=== PATIENT | female | born 1970 | race Caucasian/White ===

== ENCOUNTER 2024-07-18 09:34 | Outpatient (AMB) | payer OTHER, SELFPAY ==
--- OUTSIDE RECORDS SUMMARY | 2024-07-18 09:36 | XMS_ITS | Data Portability ---
Author Organization [facility], , [facility] Address [address] [place] [address] Assessment No assessment recorded. Plan of Treatment Reminders Order Date Submit Date Provider Last Modified By Organization Details Last Modified Time Details Appointments None record ed. Lab None record ed. Referral None record ed. Procedures None record ed. Surgeries None record ed. Imaging None record ed. Medication Orders None record ed. Patient TargetsNo targets recorded. Patient InstructionsNo instructions recorded. Reason for Referral None Reported. Results Created Date Observation Date Name Description Value Unit Range Abnormal Flag Note LastModifiedBy Organization Detail LastModifiedTime Result Notes None recorded. Procedures Surgical History Date Name Laterality Status Provider Name and Address Organization Details Recorded Time 6 Connie - Colonoscopy completed Mike Rosales MD [address] [place] [address], [id number], [facility] 10/25/2015 11:32:06 Imaging Results None recorded. Procedure Notes None recorded. Medical Equipment None Reported. Vitals None Recorded Social History None recorded. Functional Status None recorded. Mental Status None recorded. Family History Nothing Reported. Medical History No medical history recorded. Gynecological HistoryNo gynecological history recorded. Obstetrics History GPAL:G 0 P 0 0 0 0 Past Encounters Encounter ID Performer Location Encounter Start Date Encounter Closed Date Diagnosis/Indication Diagnosis SNOMED-CT Code Diagnosis ICD10 Code [id number] Diana Saldivar [facility] [place] [address] [place] [address] 10/25/2015 09:01:02 10/25/2015 12:20:15 Health Concerns Section Related Observation LastModified by Organization Detai ls LastModified Time None Recorded Concern Status LastModified by Organization Details LastModified Time None Recorded Advance Directives Directive None Recorded Payers Encounter Date Sequence Insurance Name Policy Number Policy Flowers Covered Member ID Flowers Member ID Guarantor Name 10/25/2015 1 [facility] EDWIN WASSERMAN ([facility] [place] [id number] Shaina Moran [id number] Shaina Moran OBGyn Episode No OBEpisode recorded.
--- OUTSIDE RECORDS SUMMARY | 2024-07-18 09:36 | XMS_ITS | Patient Health Record ---
[facility] Address [address] [place] [address] Care Team Providers Care Press Operator Helper Name Role Phone Erick Martinez MD Primary Care Provider Unava Radha Martinez Unavailable [phone] Allergies Allergen (clinical drug ingredient) Drug/Non Drug Allergy documented on EMR Reaction Allergy Type Onset Date Status ciprofloxacin / dexamethasone Ciprofloxacin-Dexa methasone Insomnia Drug Allergy Active codeine Codeine nausea and vomiting Drug Allergy Active Reason For Referral No Information Medications Medication SIG (Take, Route, Frequency, Duration) Notes Start Date End Date Status Bactrim DS 800-160 MG 1 tablet Orally ev arnol 12 hrs for 10 day(s) 02/26/2018 Not-Taking Medrol 4 MG as directed Orally 03/04/2019 Not-Taking Keflex 500 MG 1 capsule Orally ceci ry 12 hrs for 7 days 08/15/2018 Not-Taking Medrol 4 MG as directed Orally 08/15/2018 Not-Taking Ibuprofen 800 MG 1 tablet Orally BID for 30 day(s) 01/16/2017 Active Amoxicillin Not-Taki ng Levoxyl 137 MCG 1 tablet on an empty stomach in the morning Orally Once a day Not-Taking Gabapentin 300 MG 1 capsule Orally Thr ee times a day for 10 days 01/16/2017 Not-Taki ng Naprosyn 500 MG 1 tablet with food o r milk as needed Orally every 12 hrs for 30 days 06/11/2017 Not-Solitario ing SPEEDER HAND Thyroid Active Tylenol 325 MG 2 capsules as needed Orally every 12 hrs for 7 days 01/16/2017 Not-Taking Morphine Sulfate 15 MG 1 tablet as neede d Orally every 4 hrs for as needed 02/06/2018 Not-Ta cirilo Multivitamin Active Prednisone Not-Takin g Motrin 800 Active Amoxicillin Not-Shital velasquez Social History Tobacco Use: Social History Observation Description Date Details (start date - stop date) Never Smoker NA - NA Tobacco Use/Smoking Question Answer Notes Are you a: nonsmoker Alcohol Screen Question Answer Notes Did you have a drink contain ing alcohol in the past year? Yes How often did you have a dri nk containing alcohol in the past year? 4 or more times a week (4 points) How many drinks did you have on a typical day when you were drinking in the past year? 1 or 2 drinks (0 point) How often did you have 6 or more drinks on one occasion in the past year? Daily or almost daily (4 points) Points 8 Interpretation Positive Tobacco use other than smoking: Question Answer Notes Are you an other tobacco user? No Problems Problem Type SNOMED Code ICD Code Onset Dates Problem Status W/U Status Risk Notes Problem 58524134 Plantar wart (B07.0) Active confirmed Problem 02849745 Joint pain (M25.50) Active confirmed Problem 9433445 Arthritis (M19.90) Active confirmed Problem 539955018 Hallux limitus of right foot (M20.5X1) Active confirmed Problem Swelling of first metatarsophalangeal joint of hallux (268491109) Bunion of right foot (M21.611) Active confirmed Problem 5708959562679559 Gouty arthritis of right foot (M10.9) Active confirmed Plan Of Treatment Pending Test Test Name Order Date X ray : Foot, right 2V 03/01/2018 *Uric Acid, Serum 08/15/2018 C-Reactive Protein, Quant 08/15/2018 CBC 08/15/2018 ESR 08/15/2018 X ray : Foot, right 3V 03/04/2019 X ray : Foot, right 3V 04/09/2019 X ray : Foot, right 3V 08/15/2018 X ray : Foot, right 3V 02/19/2018 X ray : Foot, right 3V 02/26/2018 77806, C9032-AOIOT/INJECT, JOINT/BURSA 1 08/11/2016 36040, C9919-SZPLI/INJECT, JOINT/BURSA 0 10/02/2017 X ray : Ankle, right 3V 03/04/2019 Insurance Providers Payer Name Payer Address Payer Phone Subscriber Number Group Number Insured Name Patient Relationship to Insured Coverage Start Date Coverage End Date [facility] [address] [place] [address] [id number] Shaina Moran Self - patient is the insured Medical (General) History Medical History History ICD Code asthma chronic sinusitis Chicken pox Joint implants/screws Warts Surgical History Surgery Date(Month/Year) knee replacement 05/2016 [facility] 02/07/17 Right 1st MPJ Implant Athrosurface Shoulder Replacement 06/23/21 Hospitalization History Reason Date(Month/Year) Bad reaction to allergy test ing, asthma reaction; gave two epi pens and steroids 07/09/2017
[2024-07-18 09:45] VITALS: BMI 24.6
--- NOTE | 2024-07-18 09:45 | HO.SPINEOV ---
Vital Signs 07/18/24 09:45 Height 5 ft 3 in Weight 139 lb BMI 24.6 Intake Visit Reasons: Back pain radiating to leg/bulging disc Intake Note: Ms. Moran is here today c/o low back pain that radiates down to the legs. 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: No Allergies acetaminophen [From Percocet] Allergy (Intermediate, Verified 07/18/24 09:46) Rash codeine [Codeine] Allergy (Intermediate, Verified 07/18/24 09:46) VOMITING ibuprofen Allergy (Intermediate, Verified 07/18/24 09:46) Heartburn oxycodone [From Percocet] Allergy (Intermediate, Verified 07/18/24 09:46) Rash Physical Exam Vital Signs: BMI result Body Mass Index 24.6 Assessment & Plan Assessment & Plan (1) Lumbar radiculopathy: Code(s): M54.16 - Radiculopathy, lumbar region Category: Medical Plan This is a self-referred 53-year-old female presents to the office today for evaluation of a right-sided low back pain radiating down the back of her leg anterior posterolateral calf. It started about a year ago. The patient has polymyalgia rheumatica as well as what might be suspected as some other type of autoimmune disease but there has been no formal diagnosis. She has had 30 orthopedic surgeries in her life, and has had trouble with polyarticular arthritis including shoulder replacements, left knee replacements, cervical neck fusion etc.. She has been generally dealing with the symptoms taking prednisone in the morning which does get her through the day but she is still uncomfortable he was she is on it. She takes Motrin and Tylenol. She has taken narcotic from time to time but it gives her significant amount of side effects so she generally does not like to do this. She has noticed some weakness of her right foot. No cauda equina symptoms. She has been seen at the [facility] but has been not given an injection due to a previous autoimmune reaction after an injection in her left knee that gave her tremendous amounts of swelling. She has not taken gabapentin because she had a side effect at some point but could not remember what it was. She has not been tried on Lyrica. PMH: As mentioned, she has polymyalgia as well as some type of autoimmune disease that has not been diagnosed but she has polyarticular arthritis with multiple joint surgeries, toe replacement, ACDF, 2 left knee replacements, shoulder replacement etc.. She also has had Lorenza's thyroiditis as well. She takes thyroid replacement for that. Other than that she tells me she is reasonably healthy. Social hx: She has not smoke, occasional alcohol, no marijuana Medications: Thyroid, prednisone as well as Motrin and Tylenol Allergies: Please see the list Physical exam: Awake alert oriented no acute distress but she is very uncomfortable with any attempts at manipulation of her leg. She does have gross motor movement of all of the major muscle groups but there are motor testing was difficult secondary to pain. She has decreased reflexes at the right patella in the right Achilles. Normal reflexes and strength on the left. Gait is antalgic. Imaging review: There is a lumbar MRI done at [facility] in March 2024 and this shows normal alignment, some very mild disc degeneration but no evidence of disc herniation or nerve compression. Impression: 53-year-old female with history of autoimmune disease, polyarticular arthritis, multiple joint replacements, cervical fusion, polymyalgia on chronic steroids, who has had a severe right leg radiculopathy going on for a year now. I reviewed her MRI and there is no evidence of misalignment, there was no disc herniation or nerve compression that I can see. Unfortunately I do not have an answer for her surgically. I recommend she talk with the [facility] about possibly trying an injection if they think it is safe, medications like Lyrica etc.. This sounds like it is a an autoimmune reaction to the nerve like a polyneuropathy that we can see with diabetics. With all of her inflammatory disorders going on in her body would not surprise me that she is having something like this. We typically can see this and rheumatoid arthritis patients as well where there are disproportionate pain signals coming from the body despite only mild pathology. In our experience, generally operating on these patients only gives them more pain and discomfort. We would be happy to see her back down the road if something changes. Thank you for allowing us to care for your patient. The total time spent with this visit with this patient was 45 minutes reviewing history, physical exam, lumbar imaging review, and implementation of treatment plan or further diagnostic testing Teddy Dyson MD,PhD [facility] Coding Level of Care Code New Pt Level 4 (40845) Diagnoses Lumbar radiculopathy M54.16
== END 2024-07-18 10:40 | disposition home or self-care (01) ==
PROVIDERS: PCP Family Medicine; Visit Provider Physician Assistant
DX: M54.16 Radiculopathy, lumbar region (principal)
CPT/HCPCS: 99204